=== PATIENT | female | born 1990 | race Caucasian/White ===

== ENCOUNTER → 2016-04-16 | Outpatient (REF) | payer OTHER | LOC: M LAB REF 12:53 | PROVIDERS: ATTEND Specialist | DX: Z34.83 Encounter for supervision of other normal pregnancy, third trimester (principal) ==

== ENCOUNTER 2016-05-02 06:52 | Inpatient (IN) | payer OTHER ==
[2016-05-02] VITALS (9 sets, daily range): BP systolic 111–143; BP diastolic 46–104
[~2016-05-02] VITALS: Ht 172.7 cm; Wt 75.0 kg
[~2016-05-02 06:52] MED LIST: PREN1TAB11 PO
[2016-05-02] MEDS ORDERED: BICITRA 30ML SOLN UDC PO SCH (07:01)
[2016-05-02 07:49] LABS: MEAN CORPUSCULAR HEMOGLOBIN 27.1 pg (27.0-33.0); MEAN CORPUSCULAR HGB CONC 33.7 g/dl (32.0-36.5); MEAN CORPUSCULAR VOLUME 80.3 fl (80.0-96.0); RED CELL DISTRIBUTION WIDTH 13.8 % (11.5-14.5); WHITE BLOOD COUNT 14.2 K/mm3 (4.0-10.0)
[2016-05-02] MEDS ORDERED: OXYC1TAB23 PO (08:09)
[2016-05-02] MEDS: LR 1,000 ML IV SCH ×2 (08:40→17:34)
[2016-05-02] MEDS ORDERED: DOCUSATE SODIUM 100 MG CAP PO PRN (08:45)
[2016-05-02] MEDS ORDERED: RHOGAM 300 MCG (1500 IU) INJ (J2790) IM SCH (08:45)
[2016-05-02] MEDS ORDERED: PERCOCET 5MG/325MG TAB PO PRN ×2 (08:45→10:15)
[2016-05-02] MEDS ORDERED: MEASLES,MUMPS,RUBELLA VACCINE INJ (MMR-II) (90707) SC SCH (08:45)
[2016-05-02] MEDS ORDERED: ONDANSETRON 4MG/2ML VIAL (J2405) IV PRN ×2 (08:45→10:15)
[2016-05-02] MEDS ORDERED: MORPHINE PRES-FREE INJ 10 MG/10 ML VIAL (J2274) As Ordered ONE (08:55)
[2016-05-02] MEDS ORDERED: PHENYLephrine HCL 500 MCG/5 ML (100MCG/ML) SYRINGE (J2370) As Ordered ONE (08:55)
[2016-05-02] MEDS ORDERED: OXYTOCIN INJ 10 UNITS/ML VIAL (J2590) As Ordered ONE (08:55)
[2016-05-02] MEDS ORDERED: OXYTOCIN DRIP 30 UNITS in APPROPRIATE DILUENT 1 EA IV ONE (09:00)
[2016-05-02] MEDS: KETOROLAC 30 MG/ML VIAL (J1885) IV SCH ×3 (09:00→21:10)
[2016-05-02] MEDS: PRENATAL VITAMIN TAB PO SCH (09:00)
[2016-05-02] MEDS ORDERED: ONDANSETRON 4MG/2ML VIAL (J2405) As Ordered ONE (09:06)
[2016-05-02] MEDS ORDERED: ePHEDrine SULFATE 25 MG/5 ML(5MG/ML) SYRINGE As Ordered ONE (09:13)
[2016-05-02] MEDS ORDERED: KETOROLAC 60 MG/2 ML VIAL (J1885) As Ordered ONE (09:24)
[2016-05-02] MEDS ORDERED: fentaNYL 100 MCG/2 ML INJECTION (J3010) IV PRN (10:15)
[2016-05-02] MEDS ORDERED: MEPERIDINE INJ 25 MG/ML VIAL (J2175) IV PRN (10:15)
[2016-05-02] MEDS ORDERED: LR 1,000 ML IV SCH (10:15)
[2016-05-02] MEDS ORDERED: diphenhydrAMINE INJ 50MG/ML VIAL (J1200) IV PRN (10:15)
--- NOTE | 2016-05-02 11:23 | RO ---
DATE OF PROCEDURE: 05/02/2016 PREPROCEDURE DIAGNOSIS: 39 weeks gestation, prior fourth degree perineal laceration. POSTPROCEDURE DIAGNOSIS: 39 weeks gestation, prior fourth degree perineal laceration. PROCEDURE: Primary low transverse section. SURGEON: Dr. Neal Brody. MANAGER OF RADIOLOGY: Dr. Kim Schaffer. ANESTHESIA: Spinal. ESTIMATED BLOOD LOSS: 800 mL. FINDINGS: 4128 gram or 9 pound 2 ounce male infant, 9 and 9, vertex position. Clear amniotic fluid. Normal uterus, fallopian tubes and ovaries. OPERATIVE SUMMARY: The patient was taken to the operating room where spinal anesthesia was induced. She was prepped and draped in a sterile fashion in the supine position. Pichardo catheter was placed. A Pfannenstiel skin incision was made with a scalpel and carried through to the fascia. The fascia was nicked and extended. The fascia was dissected off the rectus muscles. The rectus muscles were divided. The peritoneal cavity was entered. Bladder flap was created. Curvilinear incision was made in the lower uterine segment. Multiple large venous sinuses were noted in the lower uterine segment. Membranes ruptured of clear fluid noted. The was delivered in verted position using standard maneuvers without difficulty. The cord was doubly clamped and cut. The was handed off to the awaiting nurses. The placenta was expressed. The uterus was exteriorized and cleared of clots and debris. Uterine incision was closed with #0 Vicryl in a running locked fashion. A second imbricating layer of #0 Vicryl was placed. The uterus was placed back in the abdominal cavity. The peritoneum was closed with #2-0 Vicryl in a running fashion. The fascia was closed with #0 Vicryl in a running fashion. The subcutaneous tissue was irrigated and closed with #4-0 Monocryl. Sponge, instrument, needle counts were correct. The patient went to the recovery room in stable condition.
[2016-05-03 02:14] VITALS: BP 116/60
[2016-05-03] MEDS: KETOROLAC 30 MG/ML VIAL (J1885) IV SCH (03:39)
[2016-05-03 06:37] VITALS: BP 113/63
[2016-05-03 07:00] LABS: MEAN CORPUSCULAR HEMOGLOBIN 27.4 pg (27.0-33.0); MEAN CORPUSCULAR VOLUME 80.8 fl (80.0-96.0); RED CELL DISTRIBUTION WIDTH 14.2 % (11.5-14.5); WHITE BLOOD COUNT 12.4 K/mm3 (4.0-10.0)
[2016-05-03] MEDS: PRENATAL VITAMIN TAB PO SCH (07:46)
[2016-05-03] MEDS: PERCOCET 5MG/325MG TAB PO PRN ×3 (07:47→20:26)
[2016-05-03 10:08] VITALS: BP 113/60
[2016-05-03] MEDS: IBUPROFEN 800 MG TAB PO SCH ×2 (12:06→18:50)
[2016-05-03 14:14] VITALS: BP 122/73
[2016-05-03 18:05] VITALS: BP 122/67
[2016-05-03 22:00] VITALS: BP 126/79
[2016-05-04 02:00] VITALS: BP 122/69
[2016-05-04] MEDS: PERCOCET 5MG/325MG TAB PO PRN ×3 (02:35→15:49)
[2016-05-04] MEDS: IBUPROFEN 800 MG TAB PO SCH ×3 (02:35→18:37)
[2016-05-04 06:00] VITALS: BP 107/62
[2016-05-04] MEDS: PRENATAL VITAMIN TAB PO SCH (07:53)
[2016-05-04] MEDS ORDERED: IBUP80TA PO (08:30)
[2016-05-04 18:11] VITALS: BP 122/72
[2016-05-05] MEDS: IBUPROFEN 800 MG TAB PO SCH ×2 (03:09→11:03)
[2016-05-05 05:27] VITALS: BP 129/74
[2016-05-05] MEDS: PRENATAL VITAMIN TAB PO SCH (08:04)
[2016-05-05] MEDS ORDERED: MOM 30ML SUSPENSION UDC PO ONE (09:00)
--- NOTE | 2016-05-05 12:40 | DSES ---
DATE OF ADMISSION: 05/02/2016 DATE OF DISCHARGE: 05/04/2016 A 25-year-old 4, para 2-0-2-2, estimated date of delivery 05/09/2016, admitted 05/02/2016 for primary elective section due to history of previous fourth degree laceration. Surgery was performed by Dr. Brody and Dr. Schaffer without complications, delivered a viable male child 9 pounds 2 ounces. Postoperative course has been uneventful. She reports adequate pain management, breast-feeding on demand, out of bed independently, voiding good amounts, passing flatus. No bowel movement (BM). Vital signs are stable; temperature 97.1, blood pressure 107/62. CBC was 12.4 white count, hemoglobin and hematocrit 8.3 and 24.5, platelets of 206. Breasts are soft. Nipples are intact. Fundus is firm, nontender. Wound clean and dry, well approximated without sign and symptoms of infection or dehiscence. Lochia rubra scant without odor. Legs are negative. ASSESSMENT: Postoperative day #2, okay for discharge. PLAN: Routine care and precautions. The patient desires Milk of Magnesia prior to discharge. Continue Motrin around the clock, supplement with Percocet as needed. Return to the office in 2 weeks and 6 weeks.
[2016-05-05] MEDS: PERCOCET 5MG/325MG TAB PO PRN (13:31)
--- NOTE | 2016-05-06 07:28 | DSES ---
DATE OF ADMISSION: 05/02/2016 DATE OF DISCHARGE: 05/05/2016 25-year-old, 4, now para 2-0-2-2, estimated date of delivery 05/09/2016, admitted on 05/02/2016 for primary elective section due to history of previous fourth degree laceration. Surgery was performed by Dr. Brody and Dr. Schaffer without complications. Delivered a viable male child, 9 pounds 2 ounces. Postoperative course has been uneventful. She reports adequate pain management. Breast-feeding on demand. Out of bed independently. Voiding good amounts. Passing flatus. No bowel movement (BM). Vital signs are stable at 96.9 and 129/74. CBC with 12.4 white count, hemoglobin and hematocrit (H and H) 8.3 and 24.5 and platelets of 206. She is out of bed independently. Breasts are soft. Nipples are intact. She is breast and bottle feeding. Fundus is firm, nontender. Wound clean and dry, well approximated without signs and symptoms of infection or dehiscence. Lochia rubra scant without odor. Legs are negative. ASSESSMENT: Postoperative day #3, okay for discharge. PLAN: Routine care and precautions. The patient desires milk of magnesium prior to discharge. Continue Motrin around the clock. Supplement with Percocet as needed (p.r.n.). Return to the office 2 weeks and 6 weeks.
== END 2016-05-05 15:00 | disposition home or self-care (01) | DRG 540 ==
LOC: M LDI 06:52 → M OBS 11:34
PROVIDERS: ADMIT Specialist; ATTEND Specialist
PROC: 10D00Z1 Extraction of Products of Conception, Low, Open Approach (ICD-10-PCS; principal; 2016-05-02 08:30)
DX: O80 Encounter for full-term uncomplicated delivery (principal); Z37.0 Single live birth; Z3A.39 39 weeks gestation of pregnancy

== ENCOUNTER → 2017-08-21 | Outpatient (REF) | payer OTHER | LOC: M LAB REF 14:28 | DX: Z12.4 Encounter for screening for malignant neoplasm of cervix (principal) ==

== ENCOUNTER → 2018-02-18 | Outpatient (REF) | payer OTHER ==
[2018-02-18 12:25] LABS: HEMOGLOBIN 14.4 g/dl (12.0-15.5); MEAN CORPUSCULAR HEMOGLOBIN 28.9 pg (27.0-33.0); MEAN CORPUSCULAR HGB CONC 34.3 g/dl (32.0-36.5); MEAN CORPUSCULAR VOLUME 84.2 fl (80.0-96.0); PLATELET COUNT, AUTOMATED 285 10^3/uL (150-450); RED BLOOD COUNT 4.99 10^6/uL (4.00-5.40); RED CELL DISTRIBUTION WIDTH 11.9 % (11.5-14.5); WHITE BLOOD COUNT 6.6 10^3/uL (4.0-10.0)
[2018-02-18 12:37] LABS: ALBUMIN 4.1 GM/DL (3.2-5.2); ALBUMIN/GLOBULIN RATIO 1.32 (1.00-1.93); ALKALINE PHOSPHATASE 78 U/L (45-117); ALT/SGPT 23 U/L (12-78); ANION GAP 8 MEQ/L (8-16); AST/SGOT 15 U/L (7-37); BILIRUBIN,TOTAL 0.4 MG/DL (0.2-1.0); BLOOD UREA NITROGEN 19 MG/DL (7-18); CALCIUM LEVEL 8.6 MG/DL (8.5-10.1); CARBON DIOXIDE LEVEL 26 MEQ/L (21-32); CHLORIDE LEVEL 109 MEQ/L (98-107); CHOLESTEROL LEVEL 209 MG/DL (<200); CHOLESTEROL RISK RATIO 4.976 (<5); CREATININE FOR GFR 0.66 MG/DL (0.55-1.30); FREE T4 0.83 NG/DL (0.76-1.46); GLOMERULAR FILTRATION RATE > 60.0 (>60); GLUCOSE, FASTING 89 MG/DL (70-100); HDL CHOLESTEROL 42 MG/DL (>40); LDL CHOLESTEROL 137 MG/DL (<100); NON-HDL-C 167 MG/DL; POTASSIUM SERUM 4.4 MEQ/L (3.5-5.1); SODIUM LEVEL 143 MEQ/L (136-145); TOTAL PROTEIN 7.2 GM/DL (6.4-8.2); TRIGLYCERIDES LEVEL 149 MG/DL (<150)
== END ==
LOC: M SFHCPLAZ 08:58
DX: F41.9 Anxiety disorder, unspecified (principal); Z13.220 Encounter for screening for lipoid disorders

== ENCOUNTER → 2019-04-15 | Outpatient (REF) | payer OTHER ==
[~2019-04-15] MED LIST changes: +IBUP80TA PO; +OXYC1TAB23 PO
== END ==
LOC: M LAB REF 15:45
PROVIDERS: ATTEND Physician Assistant
DX: J11.1 Influenza due to unidentified influenza virus with other respiratory manifestations (principal)

== ENCOUNTER → 2019-11-11 | Outpatient (REF) | payer BC | LOC: M SFHCWAGY 14:36 | PROVIDERS: ATTEND Specialist | DX: Z12.4 Encounter for screening for malignant neoplasm of cervix (principal) ==

== ENCOUNTER → 2020-07-04 | Outpatient (REF) | payer BC, OTHER | LOC: M LAB REF 16:27 | PROVIDERS: ATTEND Physician Assistant Medical | DX: J02.9 Acute pharyngitis, unspecified (principal) ==

== ENCOUNTER → 2021-04-25 | Outpatient (REF) | payer BC | LOC: M SFHCWAGY 11:48 | PROVIDERS: ATTEND Specialist | DX: Z12.4 Encounter for screening for malignant neoplasm of cervix (principal); R87.610 Atypical squamous cells of undetermined significance on cytologic smear of cervix (ASC-US) | CPT/HCPCS: 87624; G0123 ==

== ENCOUNTER → 2021-08-22 | Outpatient (CLI) | payer BC ==
[~2021-08-22] MED LIST changes: +ETON1VAG3; +IBUP-1022 PO
== END ==
LOC: M LABSMTC 09:43
PROVIDERS: ATTEND Anesthesiology
DX: Z01.812 Encounter for preprocedural laboratory examination (principal); Z20.822 Contact with and (suspected) exposure to COVID-19

== ENCOUNTER 2021-08-24 14:03 | Day surgery (SDC) | payer BC ==
[~2021-08-24] VITALS: Ht 172.7 cm; Wt 59.0 kg
[~2021-08-24 14:03] MED LIST changes: -IBUP-1022 PO
[2021-08-24] MEDS ORDERED: LR 1,000 ML IV SCH ×2 (14:15→18:25)
[2021-08-24 14:38] LABS: HEMATOCRIT 41.4 % (36.0-47.0); HEMOGLOBIN 14.3 g/dl (12.0-15.5); MEAN CORPUSCULAR HEMOGLOBIN 29.4 pg (27.0-33.0); MEAN CORPUSCULAR HGB CONC 34.5 g/dl (32.0-36.5); PLATELET COUNT, AUTOMATED 270 10^3/uL (150-450); RED BLOOD COUNT 4.87 10^6/uL (4.00-5.40); WHITE BLOOD COUNT 7.2 10^3/uL (4.0-10.0)
[2021-08-24] MEDS ORDERED: fentaNYL 100 MCG/2 ML INJECTION As Ordered ONE (15:49)
[2021-08-24] MEDS ORDERED: LIDOCAINE 2% 100MG/5ML SDV (FOR ANES.) As Ordered ONE (15:49)
[2021-08-24] MEDS ORDERED: ROCURONIUM BROMIDE 50 MG/5 ML VIAL As Ordered ONE (15:49)
[2021-08-24] MEDS ORDERED: MIDAZOLAM INJ 2MG/2ML VIAL (J2250 PER 1MG) As Ordered ONE (15:49)
[2021-08-24] MEDS ORDERED: propofoL 200 MG/20 ML VIAL As Ordered ONE (15:49)
[2021-08-24] MEDS ORDERED: BUPIVACAINE HCL 0.25% 10ML VIAL As Ordered ONE (15:56)
[2021-08-24] MEDS ORDERED: METOCLOPRAMIDE INJ 10MG/2ML VIAL (J2765 PER 1) As Ordered ONE (18:09)
[2021-08-24] MEDS ORDERED: KETOROLAC 60MG 2ML VIAL As Ordered ONE (18:09)
[2021-08-24] MEDS ORDERED: ACETAMINOPHEN 1000MG 100ML IV BTL (OFIRMEV) (J0131 PER 10MG) As Ordered ONE (18:09)
[2021-08-24] MEDS ORDERED: dexameTHASONE 4 MG/ML 1ML VIAL (J1100 PER 1MG) As Ordered ONE (18:09)
[2021-08-24] MEDS ORDERED: ONDANSETRON 4MG/2ML VIAL As Ordered ONE (18:09)
[2021-08-24] MEDS ORDERED: SUGAMMADEX SODIUM 500 MG/5 ML VIAL (BRIDION) As Ordered ONE ×2 (18:09→18:10)
[2021-08-24] MEDS ORDERED: OXYC1TAB23 PO (18:24)
[2021-08-24] MEDS ORDERED: oxyCODONE 5MG TAB PO PRN (18:25)
[2021-08-24] MEDS ORDERED: IBUP-1022 PO (18:25)
[2021-08-24] MEDS ORDERED: ONDANSETRON 4MG/2ML VIAL IV PRN (18:25)
[2021-08-24] MEDS ORDERED: MORPHINE 2 MG/ML 1ML VIAL IV PRN (18:25)
[2021-08-24] MEDS ORDERED: fentaNYL 100 MCG/2 ML INJECTION IV PRN (18:25)
[2021-08-24 19:15] VITALS: BP 123/87
[2021-08-26] MEDS ORDERED: propofoL 200 MG/20 ML VIAL As Ordered ONE (12:27)
[2021-08-26] MEDS ORDERED: LIDOCAINE 2% 100MG/5ML SDV (FOR ANES.) As Ordered ONE (12:27)
[2021-08-26] MEDS ORDERED: MIDAZOLAM INJ 2MG/2ML VIAL (J2250 PER 1MG) As Ordered ONE (12:28)
[2021-08-26] MEDS ORDERED: fentaNYL 100 MCG/2 ML INJECTION As Ordered ONE (12:28)
[2021-08-26] MEDS ORDERED: ONDANSETRON 4MG/2ML VIAL As Ordered ONE (12:32)
[2021-08-26] MEDS ORDERED: dexameTHASONE 4 MG/ML 1ML VIAL (J1100 PER 1MG) As Ordered ONE (12:32)
== END 2021-08-24 19:34 | disposition home or self-care (01) ==
LOC: M SDC 14:03
PROVIDERS: ATTEND Specialist
DX: Z30.2 Encounter for sterilization (principal); Z88.0 Allergy status to penicillin; F41.9 Anxiety disorder, unspecified; Z79.899 Other long term (current) drug therapy
CPT/HCPCS: 36415; 58661; 81025; 85027; 88302; J0131; J1100; J1885; J2250; J2405; J2765; J3010

== ENCOUNTER → 2023-09-30 | Outpatient (CLI) | payer BC ==
[~2023-09-30] MED LIST changes: +IBUP-1022 PO
[2023-09-30 13:19] LABS: BASO % 0.6 % (0.0-1.0); EOS % 0.3 % (0.0-3.0); HEMOGLOBIN 13.4 g/dl (12.0-15.5); LYMPH # 1.6 10^3/uL (1.5-5.0); LYMPH % 21.7 % (24.0-44.0); MEAN CORPUSCULAR HEMOGLOBIN 28.6 pg (27.0-33.0); MEAN CORPUSCULAR HGB CONC 33.5 g/dl (32.0-36.5); MEAN CORPUSCULAR VOLUME 85.5 fl (80.0-96.0); MONO # 0.6 10^3/uL (0.0-0.8); MONO % 7.6 % (2.0-8.0); NEUTROPHILS % 69.2 % (36.0-66.0); PLATELET COUNT, AUTOMATED 303 10^3/uL (150-450); RED BLOOD COUNT 4.68 10^6/uL (4.00-5.40); WHITE BLOOD COUNT 7.2 10^3/uL (4.0-10.0)
[2023-09-30 13:45] LABS: ALKALINE PHOSPHATASE 62 U/L (46-116); ALT/SGPT 19 U/L (7.0-40); AST/SGOT 13 U/L (<34); BILIRUBIN,TOTAL 0.4 MG/DL (0.3-1.2); BLOOD UREA NITROGEN 13 MG/DL (9-23); CALCIUM LEVEL 9.3 MG/DL (8.5-10.1); CARBON DIOXIDE LEVEL 28 MMOL/L (20-31); CHLORIDE LEVEL 107 MMOL/L (98-107); CHOLESTEROL LEVEL 184 MG/DL (<200); CHOLESTEROL RISK RATIO 3.68 (<5); CREATININE FOR GFR 0.61 MG/DL (0.55-1.30); GLOMERULAR FILTRATION RATE > 60.0 (>60); GLUCOSE, FASTING 80 MG/DL (60-100); HDL CHOLESTEROL 49.9 MG/DL (>40); LDL CHOLESTEROL 118.1 MG/DL (<100); NON-HDL-C 134.1 MG/DL; POTASSIUM SERUM 4.4 MMOL/L (3.5-5.1); SODIUM LEVEL 141 MMOL/L (136-145); TOTAL PROTEIN 6.6 G/DL (5.7-8.2); TRIGLYCERIDES LEVEL 80 MG/DL (<150)
[2023-09-30 13:47] LABS: FREE T4 1.04 NG/DL (0.89-1.76); THYROID STIMULATING HORMONE 2.211 uIU/ML (0.55-4.78)
[2023-09-30 15:46] LABS: HEMOGLOBIN A1c 4.9 % (4.0-6.0)
== END ==
LOC: M PLALAB 11:17
PROVIDERS: ATTEND Student in an Organized Health Care Education/Training Program
DX: F41.9 Anxiety disorder, unspecified (principal); Z76.89 Persons encountering health services in other specified circumstances; Z83.3 Family history of diabetes mellitus

== ENCOUNTER → 2024-01-30 | Outpatient (REF) | payer BC ==
[~2024-01-30] MED LIST changes: +ACET32TAB PO; +AMOX875T2 PO; +CLIN-250 PO; +MULTCHW14 PO
== END ==
LOC: M SFHCPLAZ 09:20
DX: J02.0 Streptococcal pharyngitis (principal); Z53.9 Procedure and treatment not carried out, unspecified reason

== ENCOUNTER 2024-02-01 10:54 | Inpatient (IN) | payer BC ==
[~2024-02-01] VITALS: Ht 175.3 cm; Wt 58.9 kg
[~2024-02-01 10:54] MED LIST changes: -ACET32TAB PO; -AMOX875T2 PO; -CLIN-250 PO; -MULTCHW14 PO
[2024-02-01 11:37] LABS: BASO # 0.1 10^3/uL (0.0-0.2); BASO % 0.3 % (0.0-1.0); EOS % 0.1 % (0.0-3.0); HEMATOCRIT 38.5 % (36.0-47.0); HEMOGLOBIN 13.2 g/dl (12.0-15.5); LYMPH % 5.9 % (24.0-44.0); MEAN CORPUSCULAR HEMOGLOBIN 28.7 pg (27.0-33.0); MEAN CORPUSCULAR HGB CONC 34.3 g/dl (32.0-36.5); MEAN CORPUSCULAR VOLUME 83.7 fl (80.0-96.0); MONO % 5.9 % (2.0-8.0); NEUTROPHILS # 14.1 10^3/uL (1.5-8.5); NEUTROPHILS % 87.2 % (36.0-66.0); PLATELET COUNT, AUTOMATED 286 10^3/uL (150-450); WHITE BLOOD COUNT 16.2 10^3/uL (4.0-10.0)
[2024-02-01 12:03] LABS: BLOOD UREA NITROGEN 12 MG/DL (9-23); CALCIUM LEVEL 8.8 MG/DL (8.5-10.1); CARBON DIOXIDE LEVEL 23 MMOL/L (20-31); CHLORIDE LEVEL 106 MMOL/L (98-107); GLOMERULAR FILTRATION RATE > 60.0 (>60); GLUCOSE, FASTING 87 MG/DL (60-100); POTASSIUM SERUM 3.5 MMOL/L (3.5-5.1); SODIUM LEVEL 138 MMOL/L (136-145)
[2024-02-01 12:16] LABS: HCG, SERUM QUALITATIVE NEGATIVE (NEGATIVE)
[2024-02-01] MEDS ORDERED: ISOVUE-370 76% 100ML VIAL As Ordered ONE (12:30)
[2024-02-01] MEDS: NS 500 ML IV ONE (12:40)
[2024-02-01] MEDS: dexAMETHasone 20MG/5ML VIAL IV ONE (13:50)
[2024-02-01] MEDS: cefTRIAXone SOD 1 GM in DEXTROSE 5% (D5W) ADV/MINI-BAG 50 ML IV ONE (13:50)
[2024-02-01] MEDS: LIDOCAINE W/EPINEPHRINE 1% 20ML VIAL SC ONE (13:57)
[2024-02-01] MEDS ORDERED: MULTCHW14 PO (14:04)
[2024-02-01] MEDS ORDERED: CLIN-250 PO (14:04)
[2024-02-01] MEDS ORDERED: HOME MED LIST COMPLETE! XX SCH (14:05)
[2024-02-01] MEDS ORDERED: METOCLOPRAMIDE INJ 10MG/2ML VIAL IV PRN (14:15)
[2024-02-01 16:12] VITALS: BP 129/93; TEMP 98.4; O2SAT 98
[2024-02-01] MEDS: PANTOPRAZOLE 40MG TAB (PROTONIX) PO ONE (16:23)
[2024-02-01 20:01] VITALS: BP 117/72; TEMP 97.9; O2SAT 97
[2024-02-02 04:10] VITALS: BP 99/74; TEMP 97.3; O2SAT 98
[2024-02-02 05:15] LABS: HEMATOCRIT 35.2 % (36.0-47.0); HEMOGLOBIN 12.4 g/dl (12.0-15.5); MEAN CORPUSCULAR HEMOGLOBIN 29.1 pg (27.0-33.0); MEAN CORPUSCULAR HGB CONC 35.2 g/dl (32.0-36.5); MEAN CORPUSCULAR VOLUME 82.6 fl (80.0-96.0); PLATELET COUNT, AUTOMATED 320 10^3/uL (150-450); RED BLOOD COUNT 4.26 10^6/uL (4.00-5.40); WHITE BLOOD COUNT 13.2 10^3/uL (4.0-10.0)
[2024-02-02 05:46] LABS: ALBUMIN 3.3 G/DL (3.2-5.2); ALKALINE PHOSPHATASE 90 U/L (35-104); ALT/SGPT 40 U/L (7.0-40); AST/SGOT 19 U/L (<34); BILIRUBIN,TOTAL 0.4 MG/DL (0.3-1.2); BLOOD UREA NITROGEN 12 MG/DL (9-23); CALCIUM LEVEL 8.9 MG/DL (8.5-10.1); CARBON DIOXIDE LEVEL 23 MMOL/L (20-31); CHLORIDE LEVEL 109 MMOL/L (98-107); CREATININE FOR GFR 0.54 MG/DL (0.55-1.30); GLOMERULAR FILTRATION RATE > 60.0 (>60); GLUCOSE, FASTING 162 MG/DL (60-100); POTASSIUM SERUM 4.3 MMOL/L (3.5-5.1); SODIUM LEVEL 140 MMOL/L (136-145); TOTAL PROTEIN 6.5 G/DL (5.7-8.2)
[2024-02-02] MEDS ORDERED: NS 1,000 ML IV SCH (08:15)
[2024-02-02] MEDS ORDERED: cefTRIAXone SOD 2GM VIAL IM SCH (09:00)
[2024-02-02 12:00] VITALS: BP 105/69; TEMP 98.6; O2SAT 98
[2024-02-02] MEDS: cefTRIAXone SOD 2GM VIAL IV SCH (13:49)
[2024-02-02 20:00] VITALS: BP 106/72; TEMP 97.9; O2SAT 98
[2024-02-02] MEDS: ACETAMINOPHEN 325 MG TAB PO PRN (20:40)
[2024-02-03 04:00] VITALS: BP 105/72; TEMP 98.1; O2SAT 98
[2024-02-03 04:47] LABS: BASO % 0.1 % (0.0-1.0); HEMATOCRIT 34.9 % (36.0-47.0); HEMOGLOBIN 11.8 g/dl (12.0-15.5); LYMPH # 0.8 10^3/uL (1.5-5.0); LYMPH % 4.3 % (24.0-44.0); MEAN CORPUSCULAR HGB CONC 33.8 g/dl (32.0-36.5); MEAN CORPUSCULAR VOLUME 82.9 fl (80.0-96.0); MONO # 0.6 10^3/uL (0.0-0.8); MONO % 3.1 % (2.0-8.0); NEUTROPHILS # 17.2 10^3/uL (1.5-8.5); NEUTROPHILS % 91.4 % (36.0-66.0); PLATELET COUNT, AUTOMATED 350 10^3/uL (150-450); RED BLOOD COUNT 4.21 10^6/uL (4.00-5.40); WHITE BLOOD COUNT 18.9 10^3/uL (4.0-10.0)
[2024-02-03 05:10] LABS: BLOOD UREA NITROGEN 11 MG/DL (9-23); CALCIUM LEVEL 9.2 MG/DL (8.5-10.1); CARBON DIOXIDE LEVEL 23 MMOL/L (20-31); CHLORIDE LEVEL 109 MMOL/L (98-107); CREATININE FOR GFR 0.49 MG/DL (0.55-1.30); GLOMERULAR FILTRATION RATE > 60.0 (>60); GLUCOSE, FASTING 166 MG/DL (60-100); POTASSIUM SERUM 4.2 MMOL/L (3.5-5.1); SODIUM LEVEL 141 MMOL/L (136-145)
[2024-02-03] MEDS ORDERED: ACET32TAB PO (10:19)
[2024-02-03] MEDS ORDERED: AMOX875T2 PO (10:19)
== END 2024-02-03 11:54 | disposition home or self-care (01) | DRG 710 ==
LOC: M ED 10:54 → OBSVTOIN 14:26 → M ED INP 14:26 → M MSPAV 16:18
PROVIDERS: ADMIT Hospitalist; ATTEND Student in an Organized Health Care Education/Training Program
PROC: 0C9PXZZ Drainage of Tonsils, External Approach (ICD-10-PCS; principal; 2024-02-01)
DX: A41.9 Sepsis, unspecified organism (principal); J36 Peritonsillar abscess; Z88.0 Allergy status to penicillin

== ENCOUNTER → 2024-09-30 | Outpatient (REF) | payer BC ==
[~2024-09-30] MED LIST changes: +ACET32TAB PO; +AMOX875T2 PO; +CLIN-250 PO; +MULTCHW14 PO
== END ==
LOC: M SFHCPLAZ 11:09
PROVIDERS: ATTEND Student in an Organized Health Care Education/Training Program
DX: Z53.9 Procedure and treatment not carried out, unspecified reason (principal)

== ENCOUNTER → 2024-09-30 | Outpatient (CLI) | payer BC ==
[2024-09-30 14:05] LABS: ALT/SGPT 16 U/L (7.0-40); AST/SGOT 19 U/L (<34); CALCIUM LEVEL 8.9 MG/DL (8.5-10.1); CARBON DIOXIDE LEVEL 25 MMOL/L (20-31); CHLORIDE LEVEL 107 MMOL/L (98-107); CHOLESTEROL LEVEL 190 MG/DL (<200); CHOLESTEROL RISK RATIO 3.11 (<5); CREATININE FOR GFR 0.77 MG/DL (0.55-1.30); GLOMERULAR FILTRATION RATE > 90.0 (>60); LDL CHOLESTEROL 113.5 MG/DL (<100); NON-HDL-C 129.1 MG/DL; POTASSIUM SERUM 4.4 MMOL/L (3.5-5.1); SODIUM LEVEL 143 MMOL/L (136-145); TRIGLYCERIDES LEVEL 78 MG/DL (<150)
[2024-09-30 14:08] LABS: FREE T4 1.12 NG/DL (0.89-1.76)
[2024-09-30 14:12] LABS: ESTIMATED AVERAGE GLUCOSE 94.0 MG/DL (60-110)
[2024-09-30 14:33] LABS: CREATININE, URINE 156.4 MG/DL; MALB URINE SIEMENS 6.0 MG/L; MAU/CREAT RATIO 3.8 MCG/MG (0.0-30.0)
== END ==
LOC: M PLALAB 11:24
PROVIDERS: ATTEND Student in an Organized Health Care Education/Training Program
DX: Z00.00 Encounter for general adult medical examination without abnormal findings (principal)